=== PATIENT | male | born 1970 | race Caucasian/White ===

== ENCOUNTER 2021-03-04 21:58 | Inpatient (IN) | payer MEDICARE, OTHER ==
[~2021-03-04] VITALS: Ht 172.7 cm; Wt 91.2 kg
[~2021-03-04 21:58] MED LIST: AMIODARONE HCL 50MG/ML 3ML VIAL IV ONE; CALCIUM CHLORIDE 1GM/10ML SYR IV ONE; EPINEPHRINE 0.1MG/ML (1:10,000) 10ML SYR ONE; MAGNESIUM SULFATE 4G IN WATER 100ML PREMIX IV ONE; METO1TAB26 PO; SODIUM BICARBONATE 8.4% 1 MEQ/ML 50ML SYR IV ONE
[2021-03-04] MEDS ORDERED: SODIUM CHLORIDE 0.9% 1000ML BAG (SEPSIS BOLUS) IV ONE (22:15)
[2021-03-04] MEDS ORDERED: NOREPINEPHRINE 8MG/250ML PMX 250 ML IV ONE (23:00)
[2021-03-04] MEDS ORDERED: PROPOFOL 10MG/ML 100ML 100 ML IV STA (23:07)
[2021-03-04 23:09] LABS: HEMATOCRIT. 42.9 % (42.0-52.0); HEMOGLOBIN. 13.8 g/dL (14.0-18.0); MEAN CORPUSCULAR HEMOGLOBIN 29.6 pg (28.0-32.0); MEAN CORPUSCULAR VOLUME 92.1 fL (80.0-94.0); MEAN PLATELET VOLUME 8.8 fl (7.4-10.4); PLATELET 90 x1000/uL (130-400); RED BLOOD CELL COUNT 4.66 mill/uL (4.7-6.1)
[2021-03-04 23:20] LABS: CHLORIDE 79 mEq/L (98-107)
[2021-03-04 23:24] LABS: ETHANOL BLOOD < 10 mg/dL
[2021-03-04 23:26] LABS: INR 1.4; PARTIAL THROMBOPLASTIN TIME 55.4 sec (23.4-31.0); PROTHROMBIN TIME 14.6 sec (9.6-11.0)
[2021-03-05] MEDS ORDERED: PIPERACILLIN/TAZ 3.375G PREMIX 50 ML IV ONE
[2021-03-05] MEDS ORDERED: VANCOMYCIN 1 G PREMIX 200 ML IV ONE
[2021-03-05 00:10] LABS: BG BASE EXCESS -10.3 mmol/L (-2.0-2.0); BG CARBOXYHEMOGLOBIN 0.5 % (0.5-1.5); BG DEOXYHEMOGLOBIN 6.6 % (0.0-5.0); BG FRACTION INSPIRED OXYGEN 100; BG HCO3 ACT 16.7 mmol/L (22.0-26.0); BG METHEMOGLOBIN 0.4 % (0.0-1.5); BG OXYGEN SATURATION 93.3 % (92.0-98.5); BG OXYHEMOGLOBIN 92.5 % (94.0-97.0); BG PCO2 40.4 mmHg (35.0-45.0); BG PH 7.233 (7.350-7.450); BG PO2 90.9 mmHg (75.0-100.0); BG SAMPLE SITE RIGHT BRACHIAL; BG VENT MODE VENT - AC
[2021-03-05] MEDS ORDERED: LACTULOSE 20G/30ML UDC NG ONE (00:15)
[2021-03-05] MEDS ORDERED: MIDAZOLAM HCL 100 MG in SODIUM CHLORIDE 0.9% 100 ML IV PRN ×2 (02:15→08:00)
[2021-03-05] MEDS ORDERED: MIDAZOLAM HCL 100 MG in DEXT 5% WATER 80 ML IV ONE (02:15)
[2021-03-05 02:34] LABS: CLARITY URINE TURBID (CLEAR); COLOR URINE DARK YELLOW (YELLOW); KETONES URINE NEGATIVE (NEGATIVE); LEUKOCYTE ESTERASE URINE NEGATIVE (NEGATIVE); NITRITE URINE NEGATIVE (NEGATIVE); OCCULT BLOOD URINE 3+ (NEGATIVE); PROTEIN URINE 1+ (NEGATIVE); SPECIFIC GRAVITY URINE 1.016 (1.005-1.030)
[2021-03-05 03:55] LABS: *AMPHETAMINES SCREEN URINE NEGATIVE (NEGATIVE)
[2021-03-05 03:56] LABS: *BARBITURATES SCREEN URINE NEGATIVE (NEGATIVE); *BENZODIAZEPINES SCREEN URINE NEGATIVE (NEGATIVE); *COCAINE SCREEN URINE NEGATIVE (NEGATIVE); METHADONE URINE SCREEN NEGATIVE (NEGATIVE); OPIATES URINE SCREEN NEGATIVE (NEGATIVE); PHENCYCLIDINE URINE SCREEN NEGATIVE (NEGATIVE)
[2021-03-05 03:57] LABS: CANNABINOID URINE SCREEN NEGATIVE (NEGATIVE)
[2021-03-05] MEDS: FENTANYL CITRATE 2,500 MCG in SODIUM CHLORIDE 0.9% 200 ML IV PRN (04:57)
[2021-03-05 05:09] LABS: NUCLEATED RED BLOOD CELLS 3 /100 WBC; PLATELET ESTIMATE DECREASED
[2021-03-05] MEDS ORDERED: PROPOFOL 10 MG/ML 100 ML IV PRN (05:45)
[2021-03-05] MEDS ORDERED: ONDANSETRON HCL 4MG/2ML INJ IV PRN (07:45)
[2021-03-05] MEDS: SODIUM CHLORIDE 0.9% 1,000 ML IV SCH ×2 (08:43→22:31)
[2021-03-05] MEDS ORDERED: VANCOMYCIN 1,500 MG in DEXT 5% WATER 250 ML IV SCH (09:00)
[2021-03-05] MEDS ORDERED: PANTOPRAZOLE SODIUM 40 MG/VIAL IV SCH ×2 (09:00→17:00)
[2021-03-05] MEDS: CEFEPIME 1,000 MG in DEXTROSE 5% WATER 50 ML IV SCH ×2 (09:37→22:30)
[2021-03-05] MEDS ORDERED: ACETAMINOPHEN 325MG TABLET PO PRN (11:00)
[2021-03-05 12:02] LABS: BG BASE EXCESS -3.1 mmol/L (-2.0-2.0); BG CARBOXYHEMOGLOBIN 0.4 % (0.5-1.5); BG DEOXYHEMOGLOBIN 7.2 % (0.0-5.0); BG FRACTION INSPIRED OXYGEN 100; BG HCO3 ACT 23.6 mmol/L (22.0-26.0); BG METHEMOGLOBIN 0.5 % (0.0-1.5); BG OXYGEN SATURATION 92.7 % (92.0-98.5); BG OXYHEMOGLOBIN 91.9 % (94.0-97.0); BG PCO2 48.6 mmHg (35.0-45.0); BG PH 7.304 (7.350-7.450); BG PO2 77.2 mmHg (75.0-100.0); BG SAMPLE SITE RIGHT RADIAL; BG TOTAL HEMOGLOBIN 14.3 g/dL (12.0-18.0); BG VENT MODE VENT - AC
[2021-03-05] MEDS ORDERED: NOREPINEPHRINE 8MG/250ML PMX 250 ML IV SCH (12:25)
[2021-03-05] MEDS ORDERED: OCTREOTIDE 1,000 MCG in SODIUM CHLORIDE 0.9% 98 ML IV SCH (12:30)
[2021-03-05] MEDS ORDERED: IPRATROPIUM/ALBUTEROL 0.5-3(2.5)MG/3ML NEB HHN PRN (13:00)
[2021-03-05] MEDS ORDERED: METRONIDAZOLE 500 MG PREMIX 100 ML IV SCH (13:00)
[2021-03-05] MEDS: OCTREOTIDE 1,000 MCG in SODIUM CHLORIDE 0.9% 98 ML IV SCH (13:05)
[2021-03-05 13:54] LABS: HEPATITIS B SURFACE ANTIGEN NEGATIVE
[2021-03-05] MEDS ORDERED: LACTULOSE 20G/30ML UDC PO SCH (14:00)
[2021-03-05] MEDS: METRONIDAZOLE 500MG TABLET PO SCH ×2 (15:36→23:13)
[2021-03-05] MEDS: IPRATROPIUM/ALBUTEROL 0.5-3(2.5)MG/3ML NEB HHN SCH ×2 (16:29→20:15)
[2021-03-05] MEDS: PROPOFOL 10MG/ML 100ML 100 ML IV PRN (17:35)
[2021-03-05] MEDS: VANCOMYCIN 1250MG in DEXTROSE 5% WATER 250ML IV SCH (22:30)
[2021-03-05] MEDS: PANTOPRAZOLE SODIUM 40 MG/VIAL IV SCH (22:30)
[2021-03-05] MEDS: THIAMINE HCL 100MG TABLET PO SCH (22:30)
[2021-03-05] MEDS: LACTULOSE 20G/30ML UDC PO SCH (23:14)
[2021-03-06] VITALS (68 sets, daily range): BP systolic 80–149; BP diastolic 51–107
[2021-03-06] MEDS: PROPOFOL 10MG/ML 100ML 100 ML IV PRN ×2 (01:31→09:26)
[2021-03-06] MEDS: PHENYLEPHRINE 100 MG in DEXT 5% WATER 240 ML IV PRN ×2 (02:55→14:42)
[2021-03-06] MEDS: FENTANYL CITRATE 2,500 MCG in SODIUM CHLORIDE 0.9% 200 ML IV PRN (03:34)
[2021-03-06] MEDS: IPRATROPIUM/ALBUTEROL 0.5-3(2.5)MG/3ML NEB HHN SCH ×2 (04:05→08:05)
[2021-03-06] MEDS: METRONIDAZOLE 500MG TABLET PO SCH ×3 (06:02→21:06)
[2021-03-06 06:05] LABS: HEMATOCRIT. 40.4 % (42.0-52.0); HEMOGLOBIN. 13.4 g/dL (14.0-18.0); MEAN CORPUSCULAR HEMOGLOBIN 30.1 pg (28.0-32.0); MEAN CORPUSCULAR VOLUME 90.6 fL (80.0-94.0); MEAN PLATELET VOLUME 8.1 fl (7.4-10.4); PLATELET 64 x1000/uL (130-400); RED BLOOD CELL COUNT 4.46 mill/uL (4.7-6.1); RED CELL DISTRIBUTION WIDTH 16.4 % (11.6-14.6)
[2021-03-06 06:09] LABS: INR 1.2; PROTHROMBIN TIME 12.4 sec (9.6-11.0)
[2021-03-06] MEDS: OCTREOTIDE 1,000 MCG in SODIUM CHLORIDE 0.9% 98 ML IV SCH (07:31)
[2021-03-06] MEDS: LACTULOSE 20G/30ML UDC PO SCH ×2 (08:00→16:07)
[2021-03-06 08:13] LABS: NUCLEATED RED BLOOD CELLS 1 /100 WBC; PLATELET ESTIMATE DECREASED
[2021-03-06 08:59] LABS: BG BASE EXCESS -15.4 mmol/L (-2.0-2.0); BG CARBOXYHEMOGLOBIN 0.3 % (0.5-1.5); BG DEOXYHEMOGLOBIN 1.6 % (0.0-5.0); BG FRACTION INSPIRED OXYGEN 100; BG HCO3 ACT 13.3 mmol/L (22.0-26.0); BG METHEMOGLOBIN 0.4 % (0.0-1.5); BG OXYGEN SATURATION 98.4 % (92.0-98.5); BG OXYHEMOGLOBIN 97.7 % (94.0-97.0); BG PCO2 41.6 mmHg (35.0-45.0); BG PH 7.123 (7.350-7.450); BG PO2 150.2 mmHg (75.0-100.0); BG SAMPLE SITE RIGHT BRACHIAL; BG TOTAL RESPIRATORY RATE 16 b/min; BG VENT MODE VENT - AC
[2021-03-06] MEDS: CEFEPIME 1,000 MG in DEXTROSE 5% WATER 50 ML IV SCH ×3 (09:00→22:34)
[2021-03-06] MEDS: PANTOPRAZOLE SODIUM 40 MG/VIAL IV SCH ×2 (09:16→21:06)
[2021-03-06] MEDS: VANCOMYCIN 1250MG in DEXTROSE 5% WATER 250ML IV SCH (09:16)
[2021-03-06] MEDS: FOLIC ACID 1MG TABLET PO SCH (09:16)
[2021-03-06] MEDS: THIAMINE HCL 100MG TABLET PO SCH (09:17)
[2021-03-06] MEDS: MULTIVITAMINS,THER W-MINERALS TABLET PO SCH (09:17)
[2021-03-06] MEDS ORDERED: SODIUM BICARBONATE 8.4% 1 MEQ/ML 50ML SYR IV SCH (10:00)
[2021-03-06] MEDS ORDERED: SODIUM POLYSTYRENE SULFONATE 15 G/60 ML BOT PO NR (12:00)
[2021-03-06] MEDS: SODIUM BICARBONATE 150 MEQ in DEXTROSE 5% WATER 1,000 ML IV SCH ×2 (12:56→22:34)
[2021-03-06] MEDS: IPRATROPIUM BROMIDE (0.02%) 0.5MG/2.5ML NEB HHN SCH ×2 (14:14→20:32)
[2021-03-06 14:58] LABS: BG BASE EXCESS -5.2 mmol/L (-2.0-2.0); BG CARBOXYHEMOGLOBIN 0.3 % (0.5-1.5); BG DEOXYHEMOGLOBIN 1.2 % (0.0-5.0); BG FRACTION INSPIRED OXYGEN 80; BG HCO3 ACT 20.2 mmol/L (22.0-26.0); BG METHEMOGLOBIN 0.3 % (0.0-1.5); BG OXYGEN SATURATION 98.8 % (92.0-98.5); BG OXYHEMOGLOBIN 98.2 % (94.0-97.0); BG PCO2 38.9 mmHg (35.0-45.0); BG PH 7.333 (7.350-7.450); BG PO2 169.9 mmHg (75.0-100.0); BG SAMPLE SITE RIGHT RADIAL; BG TOTAL HEMOGLOBIN 13.4 g/dL (12.0-18.0); BG VENT MODE VENT - AC
[2021-03-07] VITALS (86 sets, daily range): BP systolic 78–119; BP diastolic 45–84
[2021-03-07] MEDS: IPRATROPIUM BROMIDE (0.02%) 0.5MG/2.5ML NEB HHN SCH ×4 (00:20→20:30)
[2021-03-07] MEDS: LACTULOSE 20G/30ML UDC PO SCH ×2 (00:50→08:00)
[2021-03-07] MEDS: OCTREOTIDE 1,000 MCG in SODIUM CHLORIDE 0.9% 98 ML IV SCH (05:30)
[2021-03-07] MEDS: METRONIDAZOLE 500MG TABLET PO SCH ×3 (05:32→21:18)
[2021-03-07 05:34] LABS: HEMATOCRIT. 40.1 % (42.0-52.0); HEMOGLOBIN. 13.2 g/dL (14.0-18.0); MEAN CORPUSCULAR HEMOGLOBIN 29.7 pg (28.0-32.0); MEAN CORPUSCULAR VOLUME 90.1 fL (80.0-94.0); MEAN PLATELET VOLUME 9.3 fl (7.4-10.4); RED BLOOD CELL COUNT 4.45 mill/uL (4.7-6.1)
[2021-03-07 06:34] LABS: PLATELET 37 x1000/uL (130-400)
[2021-03-07 07:47] LABS: NUCLEATED RED BLOOD CELLS 3 /100 WBC; PLATELET ESTIMATE MARKEDLY DECREASED
[2021-03-07 08:41] LABS: CHLORIDE 83 mEq/L (98-107)
[2021-03-07 08:46] LABS: PHOSPHORUS 7.3 mg/dL (2.5-4.9)
[2021-03-07 08:49] LABS: CREATINE KINASE 444 IU/L (39-308)
[2021-03-07] MEDS: PANTOPRAZOLE SODIUM 40 MG/VIAL IV SCH ×2 (09:08→21:18)
[2021-03-07] MEDS: THIAMINE HCL 100MG TABLET PO SCH (09:09)
[2021-03-07] MEDS: FOLIC ACID 1MG TABLET PO SCH (09:09)
[2021-03-07] MEDS: MULTIVITAMINS,THER W-MINERALS TABLET PO SCH (09:09)
[2021-03-07] MEDS: PHENYLEPHRINE 100 MG in DEXT 5% WATER 240 ML IV PRN ×2 (09:45→21:39)
[2021-03-07 11:25] LABS: BG BASE EXCESS -1.9 mmol/L (-2.0-2.0); BG CARBOXYHEMOGLOBIN 0.3 % (0.5-1.5); BG DEOXYHEMOGLOBIN 1.4 % (0.0-5.0); BG FRACTION INSPIRED OXYGEN 80; BG HCO3 ACT 22.5 mmol/L (22.0-26.0); BG METHEMOGLOBIN 0.5 % (0.0-1.5); BG OXYGEN SATURATION 98.6 % (92.0-98.5); BG OXYHEMOGLOBIN 97.8 % (94.0-97.0); BG PCO2 37.4 mmHg (35.0-45.0); BG PH 7.397 (7.350-7.450); BG PO2 155.3 mmHg (75.0-100.0); BG SAMPLE SITE RIGHT RADIAL; BG TOTAL HEMOGLOBIN 13.2 g/dL (12.0-18.0); BG TOTAL RESPIRATORY RATE 22 b/min; BG VENT MODE VENT - AC
[2021-03-07] MEDS: SODIUM BICARBONATE 150 MEQ in DEXTROSE 5% WATER 1,000 ML IV SCH ×2 (12:13→22:00)
[2021-03-07] MEDS: CEFEPIME 1,000 MG in DEXTROSE 5% WATER 50 ML IV SCH ×2 (12:14→21:18)
[2021-03-07] MEDS: CALCIUM GLUCONATE 1,000 MG in DEXT 5% WATER 90 ML IV SCH ×2 (12:14→21:17)
[2021-03-08] VITALS (93 sets, daily range): BP systolic 58–154; BP diastolic 20–115
[2021-03-08] MEDS: LACTULOSE 20G/30ML UDC PO SCH ×3 (00:22→16:00)
[2021-03-08] MEDS: IPRATROPIUM BROMIDE (0.02%) 0.5MG/2.5ML NEB HHN SCH ×4 (00:31→20:13)
[2021-03-08] MEDS: OCTREOTIDE 1,000 MCG in SODIUM CHLORIDE 0.9% 98 ML IV SCH ×2 (02:32→22:57)
[2021-03-08] MEDS: PHENYLEPHRINE 100 MG in DEXT 5% WATER 240 ML IV PRN ×2 (04:46→17:51)
[2021-03-08] MEDS: METRONIDAZOLE 500MG TABLET PO SCH ×3 (05:32→21:05)
[2021-03-08 09:05] LABS: BG BASE EXCESS -0.6 mmol/L (-2.0-2.0); BG CARBOXYHEMOGLOBIN 0.2 % (0.5-1.5); BG FRACTION INSPIRED OXYGEN 80; BG HCO3 ACT 25.4 mmol/L (22.0-26.0); BG METHEMOGLOBIN 0.5 % (0.0-1.5); BG OXYHEMOGLOBIN 96.3 % (94.0-97.0); BG PO2 103.9 mmHg (75.0-100.0); BG SAMPLE SITE LEFT RADIAL; BG TOTAL HEMOGLOBIN 13.6 g/dL (12.0-18.0); BG TOTAL RESPIRATORY RATE 22 b/min; BG VENT MODE VENT - AC
[2021-03-08] MEDS: FOLIC ACID 1MG TABLET PO SCH (09:30)
[2021-03-08] MEDS: THIAMINE HCL 100MG TABLET PO SCH (09:30)
[2021-03-08] MEDS: PANTOPRAZOLE SODIUM 40 MG/VIAL IV SCH ×2 (09:30→20:38)
[2021-03-08] MEDS: MULTIVITAMINS,THER W-MINERALS TABLET PO SCH (09:30)
[2021-03-08] MEDS: CEFEPIME 1,000 MG in DEXTROSE 5% WATER 50 ML IV SCH ×2 (09:35→20:38)
[2021-03-08] MEDS: CALCIUM GLUCONATE 1,000 MG in DEXT 5% WATER 90 ML IV SCH (09:36)
[2021-03-08] MEDS: DEXT 5%/0.9% NACL 1,000 ML IV SCH ×2 (09:39→20:36)
[2021-03-08] MEDS: VASOPRESSIN 20 UNIT in SODIUM CHLORIDE 0.9% 99 ML IV PRN ×2 (10:23→16:09)
[2021-03-08 10:33] LABS: HEMATOCRIT. 38.8 % (42.0-52.0); MEAN CORPUSCULAR HEMOGLOBIN 29.8 pg (28.0-32.0); MEAN CORPUSCULAR VOLUME 88.8 fL (80.0-94.0); MEAN PLATELET VOLUME 10.6 fl (7.4-10.4); RED BLOOD CELL COUNT 4.37 mill/uL (4.7-6.1); RED CELL DISTRIBUTION WIDTH 16.8 % (11.6-14.6)
[2021-03-08 10:50] LABS: PLATELET 38 x1000/uL (130-400)
[2021-03-08 11:10] LABS: T4 FREE 0.52 ng/dL (0.76-1.46)
[2021-03-08 12:14] LABS: NUCLEATED RED BLOOD CELLS 1 /100 WBC
[2021-03-08 12:15] LABS: PLATELET ESTIMATE MARKEDLY DECREASED
[2021-03-08] MEDS ORDERED: NOREPINEPHRINE 8 MG in DEXT 5% WATER 242 ML IV PRN (13:30)
[2021-03-08] MEDS: NOREPINEPHRINE 8 MG in DEXTROSE 5% WATER 250 ML IV PRN ×3 (16:47→22:57)
[2021-03-08 16:59] LABS: BG BASE EXCESS -7.7 mmol/L (-2.0-2.0); BG CARBOXYHEMOGLOBIN 0.1 % (0.5-1.5); BG DEOXYHEMOGLOBIN 4.9 % (0.0-5.0); BG HCO3 ACT 18.5 mmol/L (22.0-26.0); BG METHEMOGLOBIN 0.6 % (0.0-1.5); BG OXYGEN SATURATION 95.1 % (92.0-98.5); BG OXYHEMOGLOBIN 94.4 % (94.0-97.0); BG PCO2 40.1 mmHg (35.0-45.0); BG PH 7.281 (7.350-7.450); BG PO2 92.5 mmHg (75.0-100.0); BG SAMPLE SITE LEFT FEMORAL; BG TOTAL HEMOGLOBIN 14.9 g/dL (12.0-18.0); BG VENT MODE VENT - AC
[2021-03-08] MEDS ORDERED: SODIUM BICARBONATE 8.4% 1 MEQ/ML 50ML SYR IV NR (17:30)
[2021-03-08] MEDS ORDERED: SODIUM BICARBONATE 100 MEQ in SODIUM CHLORIDE 0.45% 1,000 ML IV SCH (17:30)
[2021-03-08] MEDS: CALCIUM GLUCONATE 1GM PREMIX 50 ML IV SCH (20:37)
[2021-03-09] VITALS (62 sets, daily range): BP systolic 40–153; BP diastolic 20–109
[2021-03-09] MEDS: VASOPRESSIN 20 UNIT in SODIUM CHLORIDE 0.9% 99 ML IV PRN ×5 (00:14→23:50)
[2021-03-09] MEDS: PHENYLEPHRINE 100 MG in DEXT 5% WATER 240 ML IV PRN ×6 (00:15→23:50)
[2021-03-09] MEDS: LACTULOSE 20G/30ML UDC PO SCH ×4 (00:17→23:02)
[2021-03-09] MEDS: IPRATROPIUM BROMIDE (0.02%) 0.5MG/2.5ML NEB HHN SCH ×4 (02:08→20:34)
[2021-03-09] MEDS: METRONIDAZOLE 500MG TABLET PO SCH ×3 (06:00→22:56)
[2021-03-09] MEDS: DEXT 5%/0.9% NACL 1,000 ML IV SCH ×2 (06:00→14:52)
[2021-03-09 06:20] LABS: HEMATOCRIT. 41.7 % (42.0-52.0); HEMOGLOBIN. 13.5 g/dL (14.0-18.0); MEAN CORPUSCULAR HEMOGLOBIN 28.9 pg (28.0-32.0); MEAN CORPUSCULAR VOLUME 89.5 fL (80.0-94.0); MEAN PLATELET VOLUME 10.4 fl (7.4-10.4); PLATELET 53 x1000/uL (130-400); RED BLOOD CELL COUNT 4.66 mill/uL (4.7-6.1); RED CELL DISTRIBUTION WIDTH 17.5 % (11.6-14.6)
[2021-03-09 06:29] LABS: CHLORIDE 79 mEq/L (98-107)
[2021-03-09] MEDS: NOREPINEPHRINE 8 MG in DEXTROSE 5% WATER 250 ML IV PRN ×2 (06:44→08:53)
[2021-03-09 07:15] LABS: PHOSPHORUS 9.9 mg/dL (2.5-4.9)
[2021-03-09] MEDS ORDERED: SODIUM POLYSTYRENE SULFONATE 15 G/60 ML BOT PO ONE (07:30)
[2021-03-09] MEDS ORDERED: SODIUM POLYSTYRENE SULFONATE 15 G/60 ML BOT PO SCH (08:00)
[2021-03-09] MEDS ORDERED: CALCIUM GLUCONATE 1GM PREMIX 50 ML IV SCH (09:00)
[2021-03-09] MEDS: PANTOPRAZOLE SODIUM 40 MG/VIAL IV SCH ×2 (09:33→20:10)
[2021-03-09] MEDS: MULTIVITAMINS,THER W-MINERALS TABLET PO SCH (09:33)
[2021-03-09] MEDS: CALCIUM GLUCONATE 1GM PREMIX 50 ML IV SCH ×2 (09:33→20:10)
[2021-03-09] MEDS: FOLIC ACID 1MG TABLET PO SCH (09:33)
[2021-03-09] MEDS: THIAMINE HCL 100MG TABLET PO SCH (09:33)
[2021-03-09] MEDS: CEFEPIME 1,000 MG in DEXTROSE 5% WATER 50 ML IV SCH ×2 (09:33→20:10)
[2021-03-09 09:58] LABS: BG BASE EXCESS -13.4 mmol/L (-2.0-2.0); BG CARBOXYHEMOGLOBIN 0.4 % (0.5-1.5); BG FRACTION INSPIRED OXYGEN 80; BG HCO3 ACT 14.4 mmol/L (22.0-26.0); BG METHEMOGLOBIN 0.4 % (0.0-1.5); BG OXYHEMOGLOBIN 94.2 % (94.0-97.0); BG PCO2 39.8 mmHg (35.0-45.0); BG PH 7.175 (7.350-7.450); BG PO2 94.4 mmHg (75.0-100.0); BG SAMPLE SITE LEFT FEMORAL; BG VENT MODE VENT - AC
[2021-03-09 10:38] LABS: NUCLEATED RED BLOOD CELLS 2 /100 WBC
[2021-03-09 10:39] LABS: PLATELET ESTIMATE DECREASED
[2021-03-09] MEDS ORDERED: SODIUM BICARBONATE 8.4% 1 MEQ/ML 50ML SYR IV SCH (11:00)
[2021-03-09] MEDS ORDERED: SODIUM BICARBONATE 8.4% 1 MEQ/ML 50ML SYR IV ONE ×2 (11:00)
[2021-03-09] MEDS: NOREPINEPHRINE 32 MG in DEXT 5% WATER 218 ML IV PRN ×3 (12:00→23:01)
[2021-03-09 14:28] LABS: BG BASE EXCESS -12.3 mmol/L (-2.0-2.0); BG CARBOXYHEMOGLOBIN 0.2 % (0.5-1.5); BG DEOXYHEMOGLOBIN 12.8 % (0.0-5.0); BG FRACTION INSPIRED OXYGEN 80; BG HCO3 ACT 14.5 mmol/L (22.0-26.0); BG METHEMOGLOBIN 0.2 % (0.0-1.5); BG OXYGEN SATURATION 87.1 % (92.0-98.5); BG OXYHEMOGLOBIN 86.8 % (94.0-97.0); BG PCO2 35.9 mmHg (35.0-45.0); BG PH 7.223 (7.350-7.450); BG PO2 65.7 mmHg (75.0-100.0); BG SAMPLE SITE LEFT FEMORAL; BG TOTAL HEMOGLOBIN 13.7 g/dL (12.0-18.0); BG VENT MODE VENT - AC
[2021-03-09] MEDS: OCTREOTIDE 1,000 MCG in SODIUM CHLORIDE 0.9% 98 ML IV SCH (16:36)
[2021-03-09] MEDS: EPINEPHRINE 10 MG in SODIUM CHLORIDE 0.9% 240 ML IV PRN ×2 (20:06→22:56)
[2021-03-09] MEDS: DOPAMINE 800MG PREMIX (DOUBLE) 250 ML IV PRN (23:01)
[2021-03-10] VITALS (31 sets, daily range): BP systolic 40–134; BP diastolic 16–69
[2021-03-10] MEDS: DEXTROSE 50% WATER 50ML SYRINGE IV PRN ×4 (00:05→04:29)
[2021-03-10] MEDS ORDERED: DEXTROSE 50% WATER 50ML SYRINGE IV ONE ×2 (00:07→08:44)
[2021-03-10] MEDS: EPINEPHRINE 10 MG in SODIUM CHLORIDE 0.9% 240 ML IV PRN ×3 (00:19→06:47)
[2021-03-10 00:52] LABS: BG BASE EXCESS -22.9 mmol/L (-2.0-2.0); BG CARBOXYHEMOGLOBIN 0.3 % (0.5-1.5); BG DEOXYHEMOGLOBIN 18.8 % (0.0-5.0); BG FRACTION INSPIRED OXYGEN 100; BG HCO3 ACT 8.1 mmol/L (22.0-26.0); BG METHEMOGLOBIN 0.6 % (0.0-1.5); BG OXYHEMOGLOBIN 80.3 % (94.0-97.0); BG PCO2 39.9 mmHg (35.0-45.0); BG PH 6.925 (7.350-7.450); BG SAMPLE SITE CL; BG TOTAL HEMOGLOBIN 7.8 g/dL (12.0-18.0); BG VENT MODE VENT - AC
[2021-03-10] MEDS: DEXT 5%/0.9% NACL 1,000 ML IV SCH (00:52)
[2021-03-10] MEDS ORDERED: SODIUM BICARBONATE 8.4% 1 MEQ/ML 50ML SYR IV NR ×2 (01:15→08:15)
[2021-03-10] MEDS ORDERED: DEXT 5%/0.9% NACL 1,000 ML IV SCH (01:30)
[2021-03-10] MEDS: IPRATROPIUM BROMIDE (0.02%) 0.5MG/2.5ML NEB HHN SCH (02:04)
[2021-03-10] MEDS ORDERED: EPINEPHRINE 20 MG in SODIUM CHLORIDE 0.9% 480 ML IV PRN ×2 (02:30→03:00)
[2021-03-10] MEDS ORDERED: SODIUM BICARBONATE 150 MEQ in DEXT 5%/0.9% NACL 1,000 ML IV SCH (02:45)
[2021-03-10] MEDS: METRONIDAZOLE 500MG TABLET PO SCH (04:58)
[2021-03-10] MEDS: PHENYLEPHRINE 100 MG in DEXT 5% WATER 240 ML IV PRN (06:07)
[2021-03-10] MEDS: DOPAMINE 800MG PREMIX (DOUBLE) 250 ML IV PRN (08:08)
[2021-03-10 08:09] LABS: MEAN CORPUSCULAR HEMOGLOBIN 30.1 pg (28.0-32.0); MEAN CORPUSCULAR VOLUME 107.3 fL (80.0-94.0); MEAN PLATELET VOLUME 11.3 fl (7.4-10.4); RED BLOOD CELL COUNT 1.91 mill/uL (4.7-6.1); RED CELL DISTRIBUTION WIDTH 19.2 % (11.6-14.6)
[2021-03-10] MEDS ORDERED: DEXTROSE 50% WATER 50ML SYRINGE IV NR (08:15)
[2021-03-10] MEDS ORDERED: INSULIN REGULAR (HUMULIN R) 300UNITS/3ML VIAL IV NR (08:15)
[2021-03-10] MEDS ORDERED: CALCIUM GLUCONATE 100MG/ML 10ML VIAL IV NR (08:15)
[2021-03-10 08:17] LABS: HEMATOCRIT. 20.5 % (42.0-52.0); HEMOGLOBIN. 5.8 g/dL (14.0-18.0)
[2021-03-10 08:42] LABS: BG BASE EXCESS -27.4 mmol/L (-2.0-2.0); BG CARBOXYHEMOGLOBIN 0.4 % (0.5-1.5); BG DEOXYHEMOGLOBIN 29.8 % (0.0-5.0); BG FRACTION INSPIRED OXYGEN 100; BG HCO3 ACT 6.3 mmol/L (22.0-26.0); BG METHEMOGLOBIN 0.9 % (0.0-1.5); BG OXYGEN SATURATION 69.8 % (92.0-98.5); BG OXYHEMOGLOBIN 68.9 % (94.0-97.0); BG PCO2 50.1 mmHg (35.0-45.0); BG PH 6.718 (7.350-7.450); BG PO2 62.8 mmHg (75.0-100.0); BG SAMPLE SITE LEFT FEMORAL; BG TOTAL HEMOGLOBIN 6.7 g/dL (12.0-18.0); BG VENT MODE VENT - AC
[2021-03-10] MEDS ORDERED: CALCIUM CHLORIDE 1GM/10ML SYR IV ONE (08:44)
[2021-03-10] MEDS ORDERED: EPINEPHRINE 0.1MG/ML (1:10,000) 10ML SYR ONE (08:44)
[2021-03-10] MEDS ORDERED: SODIUM BICARBONATE 8.4% 1 MEQ/ML 50ML SYR IV ONE (08:44)
[2021-03-10] MEDS ORDERED: EPINEPHRINE 10 MG in SODIUM CHLORIDE 0.9% 240 ML IV PRN (10:00)
[2021-03-10 14:45] LABS: NUCLEATED RED BLOOD CELLS 22 /100 WBC; PLATELET ESTIMATE MARKEDLY DECREASED
[2021-03-10 14:49] LABS: PLATELET 10 x1000/uL (130-400)
== END 2021-03-10 08:40 | DRG 720 ==
LOC: ER 21:58 → MICUSO 03-05 00:14 → EDBEDREQDT 03-05 00:21 → EDBEDREQTM 03-05 00:21 → EDBEDREQ 03-05 00:21 → CVICU 03-05 22:20
PROVIDERS: ADMIT Internal Medicine; ATTEND Internal Medicine
PROC: 0BH17EZ Insertion of Endotracheal Airway into Trachea, Via Natural or Artificial Opening (ICD-10-PCS; principal; 2021-03-05)
PROC: 5A1955Z Respiratory Ventilation, Greater than 96 Consecutive Hours (ICD-10-PCS; 2021-03-05)
PROC: 4A10X4Z Monitoring of Central Nervous Electrical Activity, External Approach (ICD-10-PCS; 2021-03-08)
DX: A41.9 Sepsis, unspecified organism (principal); J96.00 Acute respiratory failure, unspecified whether with hypoxia or hypercapnia; K72.00 Acute and subacute hepatic failure without coma; I46.9 Cardiac arrest, cause unspecified; J69.0 Pneumonitis due to inhalation of food and vomit; R65.21 Severe sepsis with septic shock; K85.90 Acute pancreatitis without necrosis or infection, unspecified; E43 Unspecified severe protein-calorie malnutrition; G92.9 Unspecified toxic encephalopathy; E87.2 Acidosis; K92.0 Hematemesis; Z20.822 Contact with and (suspected) exposure to COVID-19; N17.9 Acute kidney failure, unspecified; E87.8 Other disorders of electrolyte and fluid balance, not elsewhere classified; K70.10 Alcoholic hepatitis without ascites; M62.82 Rhabdomyolysis; E83.41 Hypermagnesemia; E83.39 Other disorders of phosphorus metabolism; F10.10 Alcohol abuse, uncomplicated; I11.9 Hypertensive heart disease without heart failure; K74.60 Unspecified cirrhosis of liver; D75.839 Thrombocytosis, unspecified; E87.1 Hypo-osmolality and hyponatremia; Z66 Do not resuscitate; E83.51 Hypocalcemia; D69.6 Thrombocytopenia, unspecified; Z99.3 Dependence on wheelchair; Z82.49 Family history of ischemic heart disease and other diseases of the circulatory system; Z74.01 Bed confinement status
CPT/HCPCS: 31500; 36415; 36600; 70551; 71045; 76700; 80048; 80053; 80076; 80202; 80305; 80320; 81003; 82140; 82150; 82248; 82375; 82533; 82550; 82805; 82962; 83605; 83735; 84100; 84134; 84145; 84439; 84443; 84484; 85018; 85025; 86705; 86709; 86803; 87070; 87340; 87426; 93005; 94002; 94003; 94640; 99285; C9113; C9803; J0282; J0610; J0692; J1265; J2250; J2354; J2370; J2543; J2704; J3010; J3370; J3475; J3490; J7030; J7040; J7042; J7050; J7060; J7070; U0003; U0005; G0480